=== PATIENT | male | born 1980 | race Caucasian/White ===

== ENCOUNTER 2016-09-08 08:36 | Inpatient (IN) | payer SELFPAY ==
[~2016-09-08] VITALS: Ht 165.1 cm; Wt 76.8 kg
--- NOTE | 2016-09-08 08:45 | NUR ---
DR BARDALES IN
--- NOTE | 2016-09-08 08:50 | NUR ---
NTG AND ASA 4 BABY ASA GIVEN AT THIS TIME AND 1 NTG PER VERBAL ORDERS FROM DR. BARDALES.
[2016-09-08] MEDS ORDERED: NORMAL SALINE 1,000 ML IV ONE ×2 (08:51→12:45)
[2016-09-08 08:59] LABS: HCT - HEMATOCRIT 41.9 % (41-53); MEAN CORPUSCULAR HGB 27.8 UUG (26-34); MEAN CORPUSCULAR HGB CONC(MCHC 33.4 GM/DL (31-37); MEAN CORPUSCULAR VOLUME 83.3 UM3 (80-100); RED BLOOD COUNT 5.03 M/MM3 (4.50-5.90); WBC - WHITE BLOOD COUNT 20.8 T/MM3 (4.5-11.0)
[2016-09-08] MEDS ORDERED: NITROGLYCERIN 0.4 MG SUBLINGUAL TABLET SL PRN (09:00)
[2016-09-08] MEDS ORDERED: G.I. COCKTAIL 30ml PO ONE (09:00)
[2016-09-08] MEDS ORDERED: FAMOTIDINE 20 MG in NORMAL SALINE 50 ML IV ONE (09:00)
[2016-09-08] MEDS ORDERED: ASPIRIN 81 MG CHEWABLE TABLET PO ONE (09:00)
--- NOTE | 2016-09-08 09:00 | NUR ---
NTG RESULTS/NO FURTHER ORDERED PT DENIES ANY RELIEF WITH NTG ADMINISTTRATION BUT DOES REDUCE BLOOD PRESSURE TO 124/78. SPOKE WITH DR. BARDALES ABOUT ADDITIONAL NTG AND HE STATES TO HOLD ANY ADDITIONAL ORDERS FOR NOW, IV FLUIDS, PEPCID, AND GI COCKTAIL WILL BE ORDERED.
--- NOTE | 2016-09-08 09:04 | NUR ---
PO MEDS GI COCKTAIL CHARTED W/ PT TOLERANCE.
--- NOTE | 2016-09-08 09:04 | ERPDOC ---
Departure Disposition Decision Date: Sep 08, 2016 Disposition Decision Time: 13:39 Disposition: 02 TO [facility] Impression Impression Impression: Primary Impression: Sepsis Additional Impression: Gastroparesis Severity: Severe Condition: Stable Seen By: Physician only Problems/Meds/Labs Reviewed?: Yes Medications reviewed and manag: Yes Follow up care ordered?: Yes Mental Status: Alert HPI - Chest Pain General Chief Complaint: Chest Pain Stated Complaint: CP Time Seen by Provider: 08:51 HPI - Chest Pain Initial Comments 35-year-old gentleman with no previous medical history. He does not see doctors. Awakened this morning at 6 AM with crushing chest pain. Has had this type of thing twice before, both resolved spontaneously. 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 No vomiting, has been nauseous this morning since he woke up. Girlfriend says he was diaphoretic on arising. He denies any drug usage, the girlfriend also denies that he uses anything. He does not drink alcohol. Very rarely smokes a cigarette. Pain is worse with deep breathing. Aspirin Treatment Today: provided at home Allergies: Coded Allergies: No Known Allergies (Unverified , 09/08/16) Past History Patient Medical History Problem List Updates: Negative Patient Surgical History Negative Past Medical History Pt denies signifigant PMH Surgical History Denies Surgeries Family History Family History: Negative Social History Smoking Status: Current some day smoker Substance Use Type: does not use Alcohol Intake: none Record Review Pertinent history updated: Yes Review of Systems Cardiovascular Cardiac: see HPI Rhythm/Rate: see HPI Pulmonary Respiratory: see HPI GI Upper Abdomen: see HPI General: see HPI All other Systems All Other Systems: Reviewed and Negative Physical Exam General General Nourishment: well nourished, well developed, appears stated age Distress Description Chest pain, pain with breathing, overall discomfort Vitals and Pain First Documented Vital Signs Date Time Temp Pulse Resp B/P Pulse Ox O2 Delivery O2 Flow Rate FiO2 09/08/16 08:36 95.8 42 18 172/102 100 Room Air 09/08/16 10:15 4.00 Weight: Kilograms: 78.600 Height (feet): 5 Height (inches): 4.00 Triage Pain Scale: Normal Exams: Head: Normocephalic w/o trauma Neck: Full range of motion, without adenopathy, JVD, bruits or thyromegaly CV: Regular rate and rhythm, without murmur or gallop, Pulses 2+ all extremities, capillary refill, <2 seconds all ext., no pedal edema noted Abdomen: Bowel sounds positive, soft, non-tender, non-distended, no hepatosplenomegaly, masses or bruits noted Neurologic: Patient is alert, and oriented, cranial nerves, motor/sensory/ cerebellar, exams w/o gross deficits, to observation Psychiatric: Patient exhibits, appropriate attention, emotion and affect Respiratory (brief) Comments Patient has mild crackles bilateral Differential Diagnoses Considering: Acute AR, Anxiety/Panic, CHF, Pancreatitis, Pericarditis, Pleurisy , Pneumothorax, Pneumonia, Pulmonary Edema, Pulmonary Embolus, Rib Fracture Progress Results/Orders Orders Procedure Category Date Status Time Cbc W/Auto LAB 09/08/16 Complete Diff-Reflex Manual 08:51 Cmp - Comprehensive LAB 09/08/16 Complete Metabolic 08:51 Probnp LAB 09/08/16 Complete 08:51 Troponin I W LAB 09/08/16 Complete Hemolysis Index 08:51 INR LAB 09/08/16 Complete 08:51 Ua, Dip Wreflex LAB 09/08/16 Complete Microsc & Collar Closer Lockstitch 08:51 D-Dimer LAB 09/08/16 Complete 08:51 Tsh - Thyroid Stim LAB 09/08/16 Complete Hormone 08:51 EKG EKG 09/08/16 Logged 08:51 Chest, Pa & Lateral RAD 09/08/16 Resulted 08:51 Iv Lock (Ed Only) EDM 09/08/16 Transmitted 08:51 Bgm (Ed) EDM 09/08/16 Transmitted 08:51 Bilateral Blood EDM 09/08/16 Transmitted Pressure 08:51 Normal Saline (Normal PHA 09/08/16 Complete Saline Iv) 08:51 Aspirin (Asa) PHA 09/08/16 Complete 09:00 Nitroglycerin PHA 09/08/16 In Process (Nitrostat) 09:00 Famotidine (Pepcid 20 PHA 09/08/16 Complete Mg Inj.) 09:00 G.I. Cocktail PHA 09/08/16 Complete (/Maalox/Lidocaine 09:[address] 09/08/16 Resulted Manage Oxygen WESELY 09/08/16 In Process Administration 09:21 Oxygen, Continuous RT 09/08/16 Logged 09:21 Blood Culture FRANCISCO 09/08/16 In Process 09:23 Ct Abd/Pelvis CT 09/08/16 Taken W/Contrast Only 09:18 Iohexol (Omnipaque) PHA 09/08/16 Complete 09:32 Normal Saline (Ns) PHA 09/08/16 Complete 09:32 Saline Flush (Iv PHA 09/08/16 Complete Flush) 09:32 Lactate - Lactic Acid LAB 09/08/16 Complete Lactate - Lactic Acid LAB 09/08/16 Logged 14:10 Insert Nasogastric WESLEY 09/08/16 In Process Tube 09:52 Morphine Sulfate PHA 09/08/16 Complete (Morphine) 10:00 Ondansetron Inj PHA 09/08/16 Complete (Zofran) 10:00 KUB RAD 09/08/16 Resulted 10:50 Drug Screen LAB 09/08/16 Logged Urine-Test At [facility] [place] 12:44 Lactate - Lactic Acid LAB 09/08/16 Complete 12:44 Lactate - Lactic Acid LAB 09/08/16 Logged 17:14 Respiratory Panel, Pcr LAB 09/08/16 Logged 12:44 Normal Saline (Normal PHA 09/08/16 In Process Saline Iv) 12:45 Procalcitonin LAB 09/08/16 Complete 12:44 Levofloxacin 750 Mg PHA 09/08/16 In Process Ivpb (Levaquin 750 M 12:45 Vancomycin (Vancocin) PHA 09/08/16 In Process 12:45 Pharmacy Consult CONS 09/08/16 Transmitted 12:44 Cefepime (Maxipime) PHA 09/08/16 Complete 12:45 Cefepime (Maxipime) PHA 09/08/16 In Process 12:45 Levofloxacin 750 Mg PHA 09/08/16 In Process Ivpb (Levaquin 750 M 12:45 Pharmacy Consult CONS 09/08/16 Transmitted 12:44 Place In Facility: ED ADM 09/08/16 Transmitted 13:34 Lab Results Laboratory Tests Test 09/08/16 08:49 09/08/16 09:02 09/08/16 09:38 09/08/16 10:09 White Blood Count 20.8T/MM3 Red Blood Count 5.03M/MM3 Hemoglobin 14.0GM/DL Hematocrit 41.9% Mean Corpuscular Volume 83.3UM3 Mean Corpuscular Hemoglobin 27.8UUG Mean Corpuscular Hemoglobin Concent 33.4GM/DL RDW Standard Deviation 38.8FL Platelet Count 411T/MM3 Mean Platelet Volume 10.0UM3 Immature Granulocyte % (Auto) % Neutrophils (%) (Auto) % Lymphocytes (%) (Auto) % Monocytes (%) (Auto) % Eosinophils (%) (Auto) % Basophils (%) (Auto) % Absolute Immature Granulocyte (auto T/MM3 Absolute Neutrophils (auto) T/MM3 Absolute Lymphocytes (auto) T/MM3 Absolute Monocytes (auto) T/MM3 Absolute Eosinophils (auto) T/MM3 Absolute Basophils (auto) T/MM3 Neutrophils % (Manual) 73.0% Band Neutrophils % 2.0% Lymphocytes % (Manual) 20.0% Reactive Lymphocytes % 1.0% Monocytes % (Manual) 4.0% Absolute Neutrophils (Manual) 15.2T/MM3 Band Neutrophils # 0.4T/MM3 Lymphocytes # (Manual) 4.2T/MM3 Reactive Lymphocytes # 0.2T/MM3 Monocytes # (Manual) 0.8T/MM3 Red Cell Morphology Comment Normal Prothromb Time International Ratio 0.91 D-Dimer < 150NG/ML Turbidity < 20 Sodium Level 144MEQ/L Potassium Level 3.7MEQ/L Chloride Level 104MEQ/L Carbon Dioxide Level 25MEQ/L Anion Gap 15MEQ/L Blood Urea Nitrogen 15.0MG/DL Creatinine 0.9MG/DL Glomerular Filtration Rate Calc 97 BUN/Creatinine Ratio 17RATIO Glucose Level 161MG/DL Calculated Osmolality 281MOSM/KG Calcium Level 9.7MG/DL Total Bilirubin 0.50MG/DL Icterus Index < 2 Aspartate Amino Transf (AST/SGOT) 25U/L Alanine Aminotransferase (ALT/SGPT) 46U/L Alkaline Phosphatase 98U/L Troponin I < 0.012ng/ml LK-Spv-M-Type Natriuretic Peptide 29PG/ML Total Protein 8.0G/DL Albumin 4.6G/DL Globulin 3.4G/DL Albumin/Globulin Ratio 1.4RATIO Thyroid Stimulating Hormone (TSH) 0.37MIU/L Chemistry Specimen Hemolysis < 15 Glucometer 150mg/dL Urine Collection Type Voided-not cc-midstr Urine Color Yellow Urine Turbidity Clear Urine pH 6.5 Urine Specific Ulmer 1.025 Urine Protein Negative Urine Glucose (UA) 1+ Urine Ketones Negative Urine Blood Negative Urine Nitrite Negative Urine Bilirubin Negative Urine Urobilinogen 0.2EU/DL Urine Leukocyte Esterase Negative Urinalysis Comment Microscopic not ind. Plasma Lactate 3.9MMOL/L Test 09/08/16 13:00 Plasma Lactate 1.5MMOL/L Procalcitonin < 0.05NG/ML Medications Current ED Medications Sodium Chloride (Normal Saline IV) 1,000 ml @ 1,000 mls/hr Q1H ONCE IV Last administered on 09/08/16 09:04; Start 09/08/16 at 08:51; Stop 09/08/16 at 09:50 ; Status DC Aspirin (ASA) 324 mg O ONCE PO Last administered on 09/08/16 08:50; Start at 09:00; Stop 09/08/16 at 09:01; Status DC Nitroglycerin 0.4 mg 0.4 mg Q5MIN PRN SL CHEST PAIN Last administered on 08:50; Start 09/08/16 at 09:00 Famotidine/Sodium Chloride (PEPCID 20 mg INJ./NS) 52 ml @ 100 mls/hr O ONCE IV Last administered on 09/08/16 09:00; Start 09/08/16 at 09:00; Stop at 09:31; Status DC Pharmacy Profile Note (/Maalox/ Lidocaine Soln) 30 ml O ONCE PO Last administered on 09/08/16 09:04; Start 09/08/16 at 09:00; Stop 09/08/16 at 09:01 ; Status DC Iohexol 1 bottle 1 bottle STK-MED ONCE .ROUTE ; Start 09/08/16 at 09:32; Stop at 09:33; Status DC Sodium Chloride (NS) 100 ml @ As Directed STK-MED ONCE .ROUTE ; Start 09/08/16 at 09:32; Stop 09/08/16 at 09:33; Status DC Sodium Chloride (Iv Flush) 10 ml STK-MED ONCE .ROUTE ; Start 09/08/16 at 09:32; Stop 09/08/16 at 09:33; Status DC Morphine Sulfate (Morphine) 4 mg O ONCE IV Last administered on 09/08/16 10: 09; Start 09/08/16 at 10:00; Stop 3/17/17 at 10:13; Status DC Ondansetron HCl 4 mg 4 mg O ONCE IV Last administered on 09/08/16 12:15; Start 09/08/16 at 10:00; Stop 09/08/16 at 10:13; Status DC Sodium Chloride 1,000 ml @ 125 mls/hr Q8H ONCE IV Last administered on 13:09; Start 09/08/16 at 12:45; Stop 09/08/16 at 20:44 Levofloxacin 750 mg/Dextrose/Water 150 ml @ 100 mls/hr O ONCE IV ; Start 09/08 at 12:45; Stop 09/08/16 at 14:14 Vancomycin HCl 1.75 g/Sodium Chloride 500 ml @ 250 mls/hr O ONCE IV ; Start at 12:45; Stop 09/08/16 at 14:44 Cefepime HCl 1 g/ Sodium Chloride 100 ml @ 200 mls/hr O ONCE IV ; Start at 12:45; Stop 09/08/16 at 13:14; Status DC Cefepime HCl 1 g/ Sodium Chloride 100 ml @ 200 mls/hr Q6H IV ; Start 09/08/16 at 12:45 Levofloxacin/ Dextrose/Water (LEVAQUIN 750 mg IVPB/D5W) 150 ml @ 100 mls/hr Q24H IV Last administered on 09/08/16 13:10; Start 09/08/16 at 12:45 Progress Progress Blood work is appropriate, x-ray is negative. Patient has most likely a viral gastroenteritis. Treat dehydration with 1 L of normal saline. Surgery consult, recommended patient be admitted through the hospitalist. Dr. House agreed to admit the patient with sepsis. We will start antibiotics for unknown sepsis including cefepime Levaquin and vancomycin. Repeat a lactate to see if it is rising or falling to aid in placement of patient on medical floor or in ICU. Continue IV fluids at 125 ML per hour. Urine drug screen also ordered and pending. VIDA BARDALES MD Sep 08, 2016 09:04
[2016-09-08 09:06] LABS: ALBUMIN 4.6 G/DL (3.5-5.0); ALBUMIN/GLOBULIN RATIO 1.4 RATIO (1.1-2.2); ALKALINE PHOSPHATASE 98 U/L (38-126); ALT (SGPT) 46 U/L (21-72); ANION GAP 15 MEQ/L (5-15); AST (SGOT) 25 U/L (17-59); BUN/CREATININE RATIO 17 RATIO (6-26); CALCIUM 9.7 MG/DL (8.4-10.2); CHLORIDE 104 MEQ/L (98-107); CO2 - CARBON DIOXIDE 25 MEQ/L (22-30); CREATININE 0.9 MG/DL (0.8-1.5); GLOMERULAR FILTRATION RATE 97; GLUCOSE 161 MG/DL (75-110); POTASSIUM 3.7 MEQ/L (3.6-5); SODIUM 144 MEQ/L (134-144)
--- NOTE | 2016-09-08 09:11 | NUR ---
Adriane romeo in EDM - 09/08/16 at [address] [facility] [address] SCAN PT GONE TO BOTH IMAGING VIA CART.
[2016-09-08 09:12] LABS: INR 0.91 (0.76-1.04); PROTHROMBIN TIME 9.9 SEC (9.31-12.49)
--- NOTE | 2016-09-08 09:12 | NUR ---
BP R ARM 120/60
--- NOTE | 2016-09-08 09:15 | NUR ---
XRAY PT GONE XRAY VIA CART.
[2016-09-08 09:19] LABS: PROBNP 29 PG/ML (0-175)
[2016-09-08 09:21] LABS: BAND NEUTROPHILS # 0.4 T/MM3; LYMPHOCYTES # (MANUAL) 4.2 T/MM3 (1-4.8); MONOCYTES # (MANUAL) 0.8 T/MM3 (0-0.8); NEUTROPHILS #(MANUAL)-ABSOLUTE 15.2 T/MM3 (1.8-7.7); REACTIVE LYMPHOCYTES # 0.2 T/MM3 (0-0); TOTAL CELLS COUNTED 100 %
--- NOTE | 2016-09-08 09:28 | NUR ---
XRAY PT BACK FROM XRAY VIA CART.
[2016-09-08] MEDS ORDERED: IOHEXOL 350 MG/ML 75ml INJECTION ONE (09:32)
[2016-09-08] MEDS ORDERED: NORMAL SALINE 100 ML ONE (09:32)
[2016-09-08] MEDS ORDERED: SALINE FLUSH 10ml SYRINGE ONE (09:32)
--- NOTE | 2016-09-08 09:35 | NUR ---
CT SCAN PT GONE TO CT SCAN VIA CART.
[2016-09-08 09:36] LABS: THYROID STIM HORMONE-TSH 0.37 MIU/L (0.47-4.68)
--- NOTE | 2016-09-08 09:37 | DI ---
EXAM: CHEST, PA LATERAL COMPARISON: None available. HISTORY: ITS.REASON: pain . FINDINGS:The lungs are somewhat hyperinflated with increased AP diameter. The cardiomediastinal silhouette is within limits of normal. The pulmonary vascularity appears unremarkable. The lungs are clear. There is no evidence for pleural effusion. There is no evidence for a pneumothorax. No osseous abnormalities are identified. IMPRESSION: Unremarkable exam. No acute process identified. LOCATION OF DICTATION: [facility] – [place] .
[2016-09-08 09:47] LABS: BLOOD, URINE NEGATIVE (NEGATIVE); COLOR,URINE YELLOW (YELLOW); LEUKOCYTE ESTERASE ,URINE NEGATIVE (NEGATIVE); NITRITE,URINE NEGATIVE (NEGATIVE); UROBILINOGEN,URINE 0.2 EU/DL (NORMAL)
--- NOTE | 2016-09-08 09:55 | NUR ---
CT SCAN PT BACK FROM CT SCAN VIA CART.
[2016-09-08] MEDS ORDERED: ONDANSETRON 4mg/2ml INJECTION IV ONE (10:00)
[2016-09-08] MEDS ORDERED: MORPHINE SULFATE 4 MG SYRINGE IV ONE (10:00)
--- NOTE | 2016-09-08 10:00 | NUR ---
LAB IN ROOM FOR BLOOD CULTURES.
--- NOTE | 2016-09-08 10:52 | NUR ---
XRAY PT GONE TO XRAY FOR CONFIRMATION OF NG TUBE R KEKE.
--- NOTE | 2016-09-08 10:54 | DI ---
EXAM: CTA PULMONARY EMBOLI using a PE pulmonary angiogram protocol with coronal MIP images. LOCATION OF DICTATION: [facility] [place]. HISTORY: ITS.REASON: chest pain, dyspnea COMPARISON: None available. TECHNIQUE: Without IV contrast, coffee roaster image of the chest was obtained. Then, using a high rate of flow, 74 cc Omnipaque 350 IV contrast was administered, and using a thin collimation helical acquisition, axial images were obtained from the highest diaphragm to the level of the aortic arch. The study was reviewed in mediastinal, bone and lung windows. Coronal and sagittal reformations were also obtained. Coronal 3D MIP images were also obtained. The current CT scan was performed using radiation dose-reduction techniques. FINDINGS: VASCULATURE: There is adequate opacification of the pulmonary arterial system. No filling defect is identified to suggest a pulmonary embolism. The thoracic aorta appears unremarkable. SOFT TISSUE: No axillary, mediastinal, or hilar lymphadenopathy is identified. No significant pericardial effusion is identified. CHEST WALL: Unremarkable. BONES: Unremarkable LUNGS: : Coalescent groundglass opacity is seen at the posterior aspect of the right upper lobe which may be related to an inflammatory or infectious etiology. Chest IMPRESSION: 1. No evidence for pulmonary embolism. 2. Coalescent opacity at the posterior aspect of the right upper lobe which could represent a subtle infiltrate. Otherwise unremarkable. EXAM: CT abdomen pelvis with IV contrast COMPARISON: . HISTORY: ITS.REASON: chest pain, dyspnea abdominal pain. LOCATION OF DICTATION: [facility] [place] TECHNIQUE: Axial images were obtained from the domes of the diaphragms to the ischial tuberosities with administration of 74 mL Omnipaque 300 contrast. The study was reconstructed into thinner axial sections and in coronal and sagittal reformations. Study is reviewed in lung, soft tissue, bone and liver windows. The current CT scan was performed using radiation dose-reduction techniques. ABDOMEN AND PELVIS FINDINGS: LIVER: There is mild periportal edema. GALLBLADDER: Unremarkable. SPLEEN: Unremarkable. PANCREAS: Unremarkable. ADRENAL GLANDS: Unremarkable. AORTA/IVC/VASCULATURE: Unremarkable. LYMPH NODES: No lymphadenopathy is identified. Small lymph nodes are noted, but are not pathologically enlarged. GENITOURINARY: Unremarkable. No renal calculi or obstructive uropathy. The bladder and ureters appear unremarkable. BOWEL: Unremarkable. The stomach, duodenum, small bowel, and colon appear unremarkable. The stomach is markedly distended with food material. The terminal ileum and appendix appear unremarkable. There is a small to moderate amount of stool seen throughout the colon. The descending colon and rectosigmoid colon avilez are thickened but likely is due to nondistention. Some fluid-filled loops of nondilated small bowel are noted. ABDOMINAL/PELVIC WALL: Unremarkable. BONES: Pars defects at L5 are noted. Abdomen and pelvis IMPRESSION: 1. Mild periportal edema. 2. Stomach is markedly distended with food material. 3. Some fluid-filled loops of nondilated small bowel are noted which is a nonspecific finding. This can sometimes be seen with an enteritis. Clinical correlation is suggested. .
--- NOTE | 2016-09-08 11:20 | DI ---
EXAM: KUB 1107 hours COMPARISON: CT abdomen and pelvis 09/08/2016 at 0944 hours HISTORY: ITS.REASON: ngt . Abdominal pain. FINDINGS: NG tube is in place with the tip at the antrum of the stomach. Residual contrast is seen within the upper collecting system and bladder likely from recent CT scan. There is a moderate amount stool seen throughout the colon. Some air-filled loops of nondilated small bowel are noted. No osseous abnormality is seen. No abnormal calcifications are identified. IMPRESSION: 1. NG tube in place with the tip at the antrum of the stomach. 2. Small to moderate amount of stool seen throughout the colon. Some air-filled of nondilated small bowel are noted which could represent a mild ileus. LOCATION OF DICTATION: [facility] [place] .
[2016-09-08] MEDS ORDERED: VANCOMYCIN 1.75 G in NORMAL SALINE 500 ML IV ONE (12:45)
[2016-09-08] MEDS ORDERED: CEFEPIME 1 G in NORMAL SALINE 100 ML IV ONE (12:45)
[2016-09-08] MEDS ORDERED: LEVOFLOXACIN 750 mg IVPB 750 MG in D5W 150 ML IV SCH (12:45)
[2016-09-08] MEDS ORDERED: LEVOFLOXACIN 750 mg IVPB 750 MG in D5W 150 ML IV ONE (12:45)
--- NOTE | 2016-09-08 13:35 | NUR ---
ROOM ASSIGNED ROOM ASSIGNED RM 140 IN MEDICAL UNIT.
--- NOTE | 2016-09-08 13:44 | NUR ---
REPORT REPORT GIVEN TO SARA ADAM.
--- NOTE | 2016-09-08 14:05 | NUR ---
DEPART PT LEFT ER ADMIT TO MEDICAL RM 140 VIA CART W/ CONSTANT MONITORING THROUGHOUT W/ IV X2 AND DROWSY BUT AWAKENED AND PT CARE XFERED TO SARA RN W/O CHANGE.
--- NOTE | 2016-09-08 14:05 | NUR ---
Admit Patient admitted to Medical Unit room 140 from ED. Arrived on cart and was able to awaken enough to transfer from cart to bed. Patient answered admit questions appropriately and then went back to sleep. NG present to left nare and hooked up to low intermittent suction. Patient's arrived in room after admit questions done. Sitting at bedside quietly.
[2016-09-08 14:06] VITALS: Ht 165.1 cm; Wt 76.8 kg
[2016-09-08 14:13] VITALS: BP 157/96; PULSE 52; RESP 14; TEMP 95.6; O2SAT 97
--- NOTE | 2016-09-08 14:17 | NUR ---
VANCOMYCIN CONSULT: Dx: Sepsis Current Renal Fx: SCr = 0.9mg/dl. Will give loading dose of Vancomycin 1,750mg IV one time. Follow this with 1,250mg ivpb q8h. Will continue to monitor and adjust regimen to maintain therapeutic levels. Thank you.
--- NOTE | 2016-09-08 15:00 | NUR ---
Status Patient arrived back from CT. Verbal report given to Kristin ADAM who will be assuming care of patient. Kristin understands we need to obtain drug screen UA on patient and its ok to straight cath if need be. Lab is on their way down for UA.
--- NOTE | 2016-09-08 15:01 | DI ---
EXAM: CT HEAD W/O CONTRAST COMPARISON: None available. HISTORY: ITS.REASON: decreased mentation LOCATION OF DICTATION: [facility] [place]. TECHNIQUE: Axial images were obtained through the brain without IV contrast. Study is reviewed in brain, bone, subdural, and soft tissue windows. The current CT scan was performed using radiation dose-reduction techniques. FINDINGS: There is prominent CSF space at the posterior fossa posterior to the vermis measuring 2.1 cm x 1.4 cm and may represent an arachnoid cyst. This is of doubtful clinical significance. The marinelli-white junctions are distinct. No sulcal effacement is identified. There is no evidence for intracranial hemorrhage. The cerebrospinal fluid spaces appear unremarkable. No abnormal extra-axial fluid collections are identified to suggest subdural or epidural hematoma. The midline structures appear unremarkable as well. There is no evidence for midline shift or mass effect. The suprasellar cistern and quadrigeminal plate cisterns are intact. No osseous abnormalities are identified. There is no evidence for displaced skull fracture. No space occupying mass is identified. No definite evidence for acute or subacute ischemia is identified. The mastoid air cells are clear. The paranasal sinuses able to be visualized are clear. IMPRESSION: 1. Incidental note is made of a possible arachnoid cyst in the posterior fossa measuring 2.1 cm x 1.4 cm. This is of doubtful clinical significance. 2. Otherwise unremarkable exam. .
--- NOTE | 2016-09-08 15:11 | NUR ---
Pt. signs consent for Drug screen. Care Taker, Torrie Talley, present. Pt. awakens enough to use urinal. Placed in containers by Lab. Dr. Almonte in.
[2016-09-08] MEDS: CEFEPIME 1 G in NORMAL SALINE 100 ML IV SCH ×2 (15:22→19:06)
--- NOTE | 2016-09-08 15:37 | HPPDOC ---
DEBBIE PÉREZ V [employer] 09/08/16 1508: HPI - Adult Date DATE: 09/08/16 TIME: 14:49 General Chief Complaint: chest pain, abdominal pain History of Present Illness Patient is a 35-year-old male who presented to the emergency room today for acute evaluation of chest and upper abdominal discomfort. History is obtained from patient's at the bedside. She reports that he awoke at approximately 6 a.m. and complained of significant chest/epigastric pain. At that time he appeared to be diaphoretic. She reports he has had a similar pain that was brief in nature approximately one month ago as well as the month prior, however , never became this severe. Due to the severity of this pain she brought patient to the emergency room today for further evaluation and treatment. Initial laboratory studies were obtained and patient was found to have an elevated white count at 20.8, hemoglobin 14, hematocrit 41.9, platelet count 411 , 73% neutrophils and 2% bandemia. Sodium is 144, potassium 3.7, BUN 15, creatinine 0.9, glucose 161. Troponin was undetectable, less than 0.012. Initial lactate was found to be elevated at 3.9, however, it was repeated 3 hours later and decreased to 1.5 pro calcitonin undetectable, less than 0.05. TSH was found to be low at 0.37. INR 0.91, d-dimer less than 150. Urinalysis did show 1+ glucose, otherwise unremarkable. CT scan of the chest, abdomen and pelvis was obtained. Given severity of patient's pain. Patient was found to have some groundglass opacities in the right upper lobe could represent infectious process. No pulmonary emboli was identified. Stomach was found to be markedly distended, and there were's presence of fluid-filled nondilated small bowel loops. An NG tube was placed to decompress the stomach. Patient was given 4mg Zofran and 4mg of morphine for nausea and pain control. He was then started on antibiotics including Levaquin 750, vancomycin and cefepime. It is reported that patient has been somewhat somnolent, even even prior to administration of morphine. Given the severity of illness and evidence of sepsis with unknown origin the hospitalist services were contacted and septa patient for inpatient admission for further evaluation and treatment Patient is seen on initial arrival to the medical unit. He is sleeping and will not arouse to painful stimuli. All history and information regarding present illness is obtained from at the bedside. 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 He has not been on any medications and had no previous surgeries. Past Medical History Past Medical History Negative Surgical History Patient's Surgical History: Negative Allergies: Coded Allergies: No Known Allergies (Unverified , 09/08/16) Family History Family History: Mother-diabetes, hypertension Father-alive and well Social History Smoking Status: Never smoker Substance Use Type: does not use Alcohol Intake: none Current Occupational Status: employed Advance Directives: No DPOA for Healthcare Only Social History Comments No primary care provider Review of Systems Unable to Obtain ROS Due to: clinical condition Comments Unable to obtain ROS due to decreased level of consciousness. Physical Exam General General Nourishment: well nourished, well developed Vital Signs Vital Signs Date Time Temp Pulse Resp B/P Pulse Ox O2 Delivery O2 Flow Rate FiO2 09/08/16 14:13 95.6 52 14 157/96 97 Room Air 09/08/16 10:50 4.00 Height (Feet): 5 Height (Inches): 5.00 Comments Decreased breath sounds due to poor effort Cardiovascular (brief) Cardiac Brief: FOUND: regular rate, NOT FOUND: regular rhythm (bradycardia) Abdomen (brief) Abdominal Brief: FOUND: BS normo active x4, soft Comments NG tube in place to low intermittent suction Integumentary (brief) Integumentary Brief: FOUND: dry, pink, warm Neurologic (brief) Neurological Brief: FOUND: cranial 2-12 intact Neurologic RN Documented GCS Eye Opening: (4)Spontaneous Verbal: (5)Oriented Motor: (6)Obeys Commands Total: Psychiatric (brief) FOUND: alert, attentive, normal affect, oriented Laboratory Laboratory Tests Test 09/08/16 08:49 09/08/16 09:02 09/08/16 09:38 09/08/16 10:09 White Blood Count 20.8T/MM3 Red Blood Count 5.03M/MM3 Hemoglobin 14.0GM/DL Hematocrit 41.9% Mean Corpuscular Volume 83.3UM3 Mean Corpuscular Hemoglobin 27.8UUG Mean Corpuscular Hemoglobin Concent 33.4GM/DL RDW Standard Deviation 38.8FL Platelet Count 411T/MM3 Mean Platelet Volume 10.0UM3 Immature Granulocyte % (Auto) % Neutrophils (%) (Auto) % Lymphocytes (%) (Auto) % Monocytes (%) (Auto) % Eosinophils (%) (Auto) % Basophils (%) (Auto) % Absolute Immature Granulocyte (auto T/MM3 Absolute Neutrophils (auto) T/MM3 Absolute Lymphocytes (auto) T/MM3 Absolute Monocytes (auto) T/MM3 Absolute Eosinophils (auto) T/MM3 Absolute Basophils (auto) T/MM3 Neutrophils % (Manual) 73.0% Band Neutrophils % 2.0% Lymphocytes % (Manual) 20.0% Reactive Lymphocytes % 1.0% Monocytes % (Manual) 4.0% Absolute Neutrophils (Manual) 15.2T/MM3 Band Neutrophils # 0.4T/MM3 Lymphocytes # (Manual) 4.2T/MM3 Reactive Lymphocytes # 0.2T/MM3 Monocytes # (Manual) 0.8T/MM3 Red Cell Morphology Comment Normal Prothromb Time International Ratio 0.91 D-Dimer < 150NG/ML Turbidity < 20 Sodium Level 144MEQ/L Potassium Level 3.7MEQ/L Chloride Level 104MEQ/L Carbon Dioxide Level 25MEQ/L Anion Gap 15MEQ/L Blood Urea Nitrogen 15.0MG/DL Creatinine 0.9MG/DL Glomerular Filtration Rate Calc 97 BUN/Creatinine Ratio 17RATIO Glucose Level 161MG/DL Calculated Osmolality 281MOSM/KG Calcium Level 9.7MG/DL Total Bilirubin 0.50MG/DL Icterus Index < 2 Aspartate Amino Transf (AST/SGOT) 25U/L Alanine Aminotransferase (ALT/SGPT) 46U/L Alkaline Phosphatase 98U/L Troponin I < 0.012ng/ml TN-Trn-R-Type Natriuretic Peptide 29PG/ML Total Protein 8.0G/DL Albumin 4.6G/DL Globulin 3.4G/DL Albumin/Globulin Ratio 1.4RATIO Thyroid Stimulating Hormone (TSH) 0.37MIU/L Chemistry Specimen Hemolysis < 15 Glucometer 150mg/dL Urine Collection Type Voided-not cc-midstr Urine Color Yellow Urine Turbidity Clear Urine pH 6.5 Urine Specific [place] 1.025 Urine Protein Negative Urine Glucose (UA) 1+ Urine Ketones Negative Urine Blood Negative Urine Nitrite Negative Urine Bilirubin Negative Urine Urobilinogen 0.2EU/DL Urine Leukocyte Esterase Negative Urinalysis Comment Microscopic not ind. Plasma Lactate 3.9MMOL/L Test 09/08/16 13:00 Plasma Lactate 1.5MMOL/L Procalcitonin < 0.05NG/ML Sepsis Diagnostic Criteria Sepsis SIRS Criteria: Pulse >= 90 beats/min, WBC >=12,000 or <=4,000, BS >120 in non- diabetic Assessment & Plan Problems: (1) Sepsis Status: Acute Assessment & Plan: Manifestations of sepsis include the following 1. Leukocytosis- WBC- 20.8 2. Elevated lactate- 3.9 3. Temp 95.6 There is questionable area of opacity in the right upper lobe lung that could represent an early infiltrate. (2) Bradycardia Status: Acute (3) Gastroparesis Status: Acute (4) Hyperthyroidism Status: Acute Plan/Intensity of Service Patient is admitted as a inpatient under care of Dr. Monroe for sepsis of unknown origin, bradycardia, leukocytosis with elevated lactate and hyperthyroidism. She was initiated on triple coverage antibiotic therapy including Levaquin, vancomycin and cefepime IV. We will continue with this treatment. We will repeat a venous lactate at 1700. Blood cultures are pending Will obtain a CT scan of the head. Given decreased level of consciousness to rule out intracranial abnormalities. Will obtain a Hgb A1 C,Free T4, Urine drug screen, respiratory panel for further medical workup. Monitor patient cardiac telemetry given bradycardia Continue with NG tube to low intermittent suction. Will keep patient nothing by mouth at this time SCDs to bilateral lower extremity for DVT prophylaxis Recheck CBC and BMP tomorrow morning to follow blood counts, renal function and electrolytes. Will discuss further plan and orders of care with Dr. Monroe DVT Prophylaxis: SCD'S Code Status Full Code Hospital Course Summary Disclaimer The hospital course summary below is not to be considered part of the above Progress Note. Hospital Course Summary 09/08 Patient is admitted as a inpatient under care of Dr. Monroe for sepsis of unknown origin, bradycardia, leukocytosis with elevated lactate and hyperthyroidism. She was initiated on triple coverage antibiotic therapy including Levaquin, vancomycin and cefepime IV. We will continue with this treatment. We will repeat a venous lactate at 1700. Blood cultures are pending Will obtain a CT scan of the head. Given decreased level of consciousness to rule out intracranial abnormalities. Will obtain a Hgb A1 C,Free T4, Urine drug screen, respiratory panel for further medical workup. Monitor patient cardiac telemetry given bradycardia Continue with NG tube to low intermittent suction. Will keep patient nothing by mouth at this time SCDs to bilateral lower extremity for DVT prophylaxis Recheck CBC and BMP tomorrow morning to follow blood counts, renal function and electrolytes. Will discuss further plan and orders of care with DIANA Samuel MD 09/08/16 6189: Past Medical History Allergies: Coded Allergies: No Known Allergies (Unverified , 09/08/16) Sepsis Diagnostic Criteria Sepsis SIRS Criteria: Acute mental status chg Severe Sepsis Lactate >=2.0 mg/dL Assessment & Plan Problems: (1) Sepsis Status: Acute Assessment & Plan: Severe sepsis with lactic acid 3.9 (2) Encephalopathy Status: Acute (3) Chest pain Status: Acute (4) Gastroparesis Status: Acute (5) Bradycardia Status: Acute (6) Hyperthyroidism Status: Acute (7) Hyperglycemia Status: Acute (8) Anemia Assessment I have independently evaluated and examined this patient. I reviewed the chart, the patient's history, and the [employer]'s documented findings as above. We discussed and formulated the assessment and plan as above with additions as below: Mr. Howe presented to the emergency room complaining of crushing chest pain and diaphoresis; there is no known past history or reported drug use. Minimal history can be obtained from the patient at this time and emergency room evaluation is as previously described. Initial troponin was unremarkable and CTA was without vascular abnormalities although minor infiltrate may be present. Patient was described as being alert and oriented in the emergency room but subsequently has become very lethargic and is able to provide minimal history. He responds to sternal rub and is able to tell me that there is pain subxiphoid but nothing else. He was able to cooperate with simple testing as long as he was repetitively stimulated but otherwise drifted off to sleep. Patient denied any difficulty prior to this morning including recent cold or drug use. EXAM General-resting comfortably, awakens to sternal rub or shaking shoulder gently but not to voice HEENT-while sleeping gaze is disconjugate but when awakened gaze is conjugate, EOMI, PERRL, conjunctiva clear, sclera anicteric, facial structure symmetric, oropharynx clear, neck is supple and moves without difficulty, no adenopathy present Lungs-decreased inspiratory effort but breath sounds clear anteriorly and posteriorly Cardiac-regular rhythm, S1-S2 Abd-minor discomfort on deep palpation subxiphoid but very localized, no guarding. NG tube present, abdomen is not distended and bowel sounds are diminished. No tenderness throughout the generalized abdomen. Ext-without edema Skin-without rash or evidence of wounds Neuro-cranial nerves II through XII grossly intact, motor tone and power within normal limits, no drift of the upper extremities, butting saw operator 4+/5, proximal/distal power lower extremities 4/5 bilaterally. Sensation intact to light touch upper and lower extremities symmetrically. Psych-Sedated/dull. Multiple radiographic studies reviewed including CTA with minimal infiltrate in the right upper lobe, chest x-ray normal by my review as was CT of the head by my review although radiology notes an incidental possible arachnoid cyst posteriorly of no significance. KUB reveals some nondilated small bowel loops which are air-filled and raises question of possible ileus. Initial lactic acid was 3.9, improving after initial fluids and gastric decompression with NG. Mild anemia present on admission in addition to leukocytosis and low-grade thrombocytosis. His reticulocyte. Mild hyperglycemia of unknown duration. Bradycardia present in the emergency room and twelve-lead EKG revealed heart rate of [address]-T wave abnormalities although there was minor slurring of the ST segments in multiple leads. Twelve-lead EKG is being repeated at this time and troponin updated based on presenting symptoms and bradycardia. I remain concerned there may be an underlying cardiac event triggering presentation. Urine drug screen is pending. Continue triple antibiotics as precaution although extensive imaging is without evidence of underlying infectious process. Respiratory viral panel pending. Avoid sedating medications due to encephalopathy which may be result of narcotics administered in the emergency room. Plan/Intensity of Service Discussed with Dr. Washburn, laboratory data reviewed, multiple x-rays and EKG reviewed by myself. Hospital stay anticipated be greater than 2 nights. DEBBIE PÉREZ APRN Sep 08, 2016 15:08 DIANA MONROE MD Sep 08, 2016 16:09
[2016-09-08 16:00] VITALS: PULSE 56; RESP 16
[2016-09-08 16:10] LABS: AMPHETAMINE SCREEN,URINE POSITIVE; BARBITURATE SCREEN,URINE NEGATIVE; BENZODIAZEPINES SCREEN,URINE NEGATIVE; CANNABINOID SCREEN,URINE NEGATIVE; COCAINE SCREEN,URINE NEGATIVE; METHADONE SCREEN, URINE NEGATIVE; METHAMPHETAMINE SCREEN, URINE NEGATIVE; OPIATE SCREEN,URINE NEGATIVE; PHENCYCLIDINE SCREEN,URINE NEGATIVE; TRICYCLIC ANTIDEPRESSANT,URINE NEGATIVE
[2016-09-08 16:43] VITALS: BP 154/99; PULSE 55; RESP 16; TEMP 97; O2SAT 100
--- NOTE | 2016-09-08 19:02 | NUR ---
Summary: Sleeps. NS infuses at 125 cc/hr. IV Antibiotics given. NG to intermittant suction; small amount yellowish/greenish/ drainage in tubing. going to collection canister. Awakened once on his own stating his throat hurt. Mouth swabs in cold water brought. Voided once. Denies pain. Dr. Monroe in twice. Pt.'s and step daughter present.
[2016-09-08 19:39] VITALS: BP 158/95; PULSE 56; RESP 15; TEMP 96.4; O2SAT 98
[2016-09-08 20:00] VITALS: PULSE 54; PULSE 57
[2016-09-09] VITALS: BP 150/98; PULSE 66; RESP 14; TEMP 96.5; O2SAT 98
[2016-09-09] MEDS: VANCOMYCIN 1,250 MG in NORMAL SALINE 250 ML IV SCH ×2 (01:05→09:29)
[2016-09-09] MEDS: CEFEPIME 1 G in NORMAL SALINE 100 ML IV SCH ×2 (03:13→08:36)
[2016-09-09 04:00] VITALS: BP 145/103; PULSE 81; RESP 16; TEMP 97.3; O2SAT 97
--- NOTE | 2016-09-09 04:40 | NUR ---
SUMMARY PT WAS DIFFICULT TO AROUSE EARLIER IN THE NIGHT, PT IS NOW SEMI ALERT AND ORIENTED TO PERSON AND PLACE. IV SITE IN THE RT AC IS NOW LOCKED WELL THE ONE IN THE LT FOREARM, BOTH FLUSH WELL. NG TUBE TO INTERMITTENT SUCTION, WITH YELLOWISH-GREEN CONTENTS. PT HAS NOT BEEN OUT OF BED DURING THE NIGHT. IS AT BEDSIDE. PT IS ABLE TO MOVE HIMSELF AROUND IN BED.
[2016-09-09 05:31] LABS: HGB - HEMOGLOBIN 13.6 GM/DL (13.5-17.5); MEAN CORPUSCULAR HGB 27.6 UUG (26-34); MEAN CORPUSCULAR HGB CONC(MCHC 33.2 GM/DL (31-37); MEAN CORPUSCULAR VOLUME 83.2 UM3 (80-100); MEAN PLATELET VOLUME 10.4 UM3 (9.4-12.4); RED BLOOD COUNT 4.93 M/MM3 (4.50-5.90); WBC - WHITE BLOOD COUNT 16.1 T/MM3 (4.5-11.0)
[2016-09-09 05:44] LABS: ANION GAP 8 MEQ/L (5-15); BUN/CREATININE RATIO 9 RATIO (6-26); CALCIUM 9.2 MG/DL (8.4-10.2); CHLORIDE 104 MEQ/L (98-107); CO2 - CARBON DIOXIDE 27 MEQ/L (22-30); CREATININE 0.7 MG/DL (0.8-1.5); GLOMERULAR FILTRATION RATE 130; GLUCOSE 122 MG/DL (75-110); POTASSIUM 3.9 MEQ/L (3.6-5); SODIUM 139 MEQ/L (134-144)
[2016-09-09 06:54] LABS: BAND NEUTROPHILS # 0.3 T/MM3; LYMPHOCYTES # (MANUAL) 1.3 T/MM3 (1-4.8); MONOCYTES # (MANUAL) 0.6 T/MM3 (0-0.8); REACTIVE LYMPHOCYTES # 0.8 T/MM3 (0-0); TOTAL CELLS COUNTED 100 %; TOXIC GRANULATION 1+
[2016-09-09 07:58] VITALS: BP 172/108; PULSE 71; RESP 14; TEMP 98; O2SAT 97
[2016-09-09] MEDS ORDERED: MORPHINE SULFATE 2 MG SYRINGE IV ONE (08:30)
[2016-09-09 09:29] VITALS: PULSE 73
[2016-09-09 09:30] VITALS: BP 155/100; PULSE 73
[2016-09-09 09:37] VITALS: RESP 18
[2016-09-09] MEDS ORDERED: ACETAMINOPHEN 500 MG TABLET PO ONE (11:30)
--- NOTE | 2016-09-09 16:03 | NUR ---
AMA THE PATIENT NOTIFIED ME AROUND 1130 THAT HE WANTED TO LEAVE THE HOSPITAL. HIS REASONING WAS THAT HE WANTED THE NG TUBE OUT, HE WAS HUNGRY AND HE WAS UNCOMFORTABLE. HE REPORTED AN 8/10 HEADACHE AND BP WAS 150/100. GAVE ORDERS FOR 1000MG TYLENOL BUT THE PATIENT REFUSED AND SAID HE JUST WANTED TO LEAVE. CAME IN AND TALKED WITH THE PATIENT AND HIS AND OFFERED TO REMOVE THE NG TUBE, GIVE TYLENOL FOR HEADACHE AND TRY SOME ORAL FLUIDS TO SEE HOW HE TOLERATED IT. EXPLAINED THE RISKS OF LEAVING GREGORY INCLUDING: NAUSEA,VOMITING,ASPIRATION,DEHYDRATION AND UNCONTROLLED BLOOD PRESSURE. THE PATIENT WAS ENCOURAGE TO FOLLOWUP WITH A PRIMARY CARE PROVIDER FOR HIS HYPERTENSION. AFTER EXPLANATION OF RISKS AND ENCOURAGEMENT TO STAY, THE PATIENT MADE THE INFORMED DECISION TO LEAVE ANYWAY. PT WAS A&OX3 AND WAS PRESENT. NG TUBE,IV LOCK,TELE AND SCDS WERE REMOVED AND PATIENT WALKED OUT OF FACILITY.
--- NOTE | 2016-09-09 21:10 | DSPDOC ---
General Date Date DATE: 09/09/16 TIME: 20:49 Attending Physician Allison Monroe MD Admitting Physician Allison Monroe MD Consulting Physician Admitting Diagnosis sepsis Discharge Diagnosis 1. Sepsis of unknown primary 2. Bradycardia, resolved 3. Epigastric pain 4. Gastroparesis, acute 5. Hypertension 6. Positive urine drug screen Procedures NG tube placement for gastric decompression Laboratory Laboratory Tests Test 09/08/16 09:02 09/08/16 09:38 09/08/16 10:09 09/08/16 13:00 Glucometer 150mg/dL (75-110) Urine Collection Type Voided-not cc-midstr Urine Color Yellow (YELLOW) Urine Turbidity Clear (CLEAR) Urine pH 6.5 (5.0-8.0) Urine Specific [place] 1.025 (1.015-1.025) Urine Protein Negative (NEGATIVE) Urine Glucose (UA) 1+ (NEGATIVE) Urine Ketones Negative (NEGATIVE) Urine Blood Negative (NEGATIVE) Urine Nitrite Negative (NEGATIVE) Urine Bilirubin Negative (NEGATIVE) Urine Urobilinogen 0.2EU/DL (NORMAL) Urine Leukocyte Esterase Negative (NEGATIVE) Urinalysis Comment Microscopic not ind. Plasma Lactate 3.9MMOL/L (0.6-2.2) 1.5MMOL/L (0.6-2.2) Procalcitonin < 0.05NG/ML Test 09/08/16 15:01 09/08/16 15:11 09/08/16 15:43 09/09/16 04:53 Plasma Lactate 1.5MMOL/L (0.6-2.2) Urine Opiates Screen NegativeNG/ML Urine Oxycodone Screen NegativeNG/ML Urine Methadone Screen NegativeNG/ML Urine Propoxyphene Screen NegativeNG/ML Urine Barbiturates Screen NegativeNG/ML Urine Tricyclic Antidepressants NegativeNG/ML Urine Phencyclidine Screen NegativeNG/ML Urine Amphetamines Screen PositiveNG/ML Urine Methamphetamines Screen NegativeNG/ML Urine Benzodiazepines Screen NegativeNG/ML Urine Cocaine Screen NegativeNG/ML Urine Cannabinoids Screen NegativeNG/ML Urine Drug Screen Confirmation Sent out Hemoglobin A1c 5.7% (6.1-7.9) Troponin I < 0.012ng/ml (0-0.12) < 0.012ng/ml (0-0.12) Chemistry Specimen Hemolysis < 15 (0-25) < 15 (0-25) Adenovirus (PCR) Negative (NEGATIVE) Bordetella parapertussis DNA (PCR) Negative (NEGATIVE) Chlamydia pneumoniae DNA (PCR) Negative (NEGATIVE) Coronavirus Type OC43 (PCR) Negative (NEGATIVE) Coronavirus Type HKU1 (PCR) Negative (NEGATIVE) Coronavirus Type 229E (PCR) Negative (NEGATIVE) Coronavirus Type NL63 (PCR) Negative (NEGATIVE) Human Metapneumovirus (PCR) Negative (NEGATIVE) Influenza Virus Type A (PCR) Negative (NEGATIVE) Influenza Virus Type B (PCR) Negative (NEGATIVE) Mycoplasma pneumoniae (PCR) Negative (NEGATIVE) Parainfluenza Type 1 (PCR) Negative (NEGATIVE) Parainfluenza Type 2 (PCR) Negative (NEGATIVE) Parainfluenza Type 3 (PCR) Negative (NEGATIVE) Parainfluenza Type 4 (PCR) Negative (NEGATIVE) Respiratory Syncytial Virus (PCR) Negative (NEGATIVE) Enterovirus/Rhinovirus (PCR) Negative (NEGATIVE) White Blood Count 16.1T/MM3 (4.5-11.0) Red Blood Count 4.93M/MM3 (4.50-5.90) Hemoglobin 13.6GM/DL (13.5-17.5) Hematocrit 41.0% (41-53) Mean Corpuscular Volume 83.2UM3 (80-100) Mean Corpuscular Hemoglobin 27.6UUG (26-34) Mean Corpuscular Hemoglobin Concent 33.2GM/DL (31-37) RDW Standard Deviation 39.2FL (36.9-50.2) Platelet Count 376T/MM3 (130-400) Mean Platelet Volume 10.4UM3 (9.4-12.4) Immature Granulocyte % (Auto) % (0.0-0.5) Neutrophils (%) (Auto) % (33-66) Lymphocytes (%) (Auto) % (23-45) Monocytes (%) (Auto) % (0-9.0) Eosinophils (%) (Auto) % (0-4) Basophils (%) (Auto) % (0-2) Absolute Immature Granulocyte (auto T/MM3 (0.00-0.03) Absolute Neutrophils (auto) T/MM3 (1.8-7.7) Absolute Lymphocytes (auto) T/MM3 (1-4.8) Absolute Monocytes (auto) T/MM3 (0-0.8) Absolute Eosinophils (auto) T/MM3 (0-0.5) Absolute Basophils (auto) T/MM3 (0-0.2) Neutrophils % (Manual) 81.0% (33-66) Band Neutrophils % 2.0% (0-6) Lymphocytes % (Manual) 8.0% (23-45) Reactive Lymphocytes % 5.0% (0-0) Monocytes % (Manual) 4.0% (0-9.0) Absolute Neutrophils (Manual) 13.0T/MM3 (1.8-7.7) Band Neutrophils # 0.3T/MM3 Lymphocytes # (Manual) 1.3T/MM3 (1-4.8) Reactive Lymphocytes # 0.8T/MM3 (0-0) Monocytes # (Manual) 0.6T/MM3 (0-0.8) Toxic Granulation 1+ Dohle Bodies 1+ Red Cell Morphology Comment Normal Turbidity < 20 (0-20) Sodium Level 139MEQ/L (134-144) Potassium Level 3.9MEQ/L (3.6-5) Chloride Level 104MEQ/L (98-107) Carbon Dioxide Level 27MEQ/L (22-30) Anion Gap 8MEQ/L (5-15) Blood Urea Nitrogen 6.0MG/DL (9-20) Creatinine 0.7MG/DL (0.8-1.5) Glomerular Filtration Rate Calc 130 BUN/Creatinine Ratio 9RATIO (6-26) Glucose Level 122MG/DL (75-110) Calculated Osmolality 267MOSM/KG (261-280) Calcium Level 9.2MG/DL (8.4-10.2) Icterus Index < 2 (0-7) Microbiology Microbiology Date/Time Source Procedure Growth Status 09/08/16 10:09 Peripheral/Iv Start Blood Culture - Preliminary NO GROWTH AFTER 24 HOURS Resulted 09/08/16 10:02 Peripheral/Iv Start Blood Culture - Preliminary NO GROWTH AFTER 24 HOURS Resulted Radiology Chest x-ray on admission was unremarkable other than mild hyperinflation. CTA of the chest on 09/08 revealed no evidence of pulmonary emboli or other thoracic vascular pathology. There was questionable subtle infiltrate in the right upper lobe. KUB on 09/08 demonstrated changes suggestive of mild ileus with some air-filled loops of nondilated small bowel. CT head without contrast on 09/08 demonstrated no acute pathology. There was a prominent CSF space in the posterior fossa thought to be a probable arachnoid cyst. Mastoid air cells and paranasal sinuses were clear. History of Present Illness Patient is a 35-year-old male who presented to the emergency room today for acute evaluation of chest and upper abdominal discomfort. History is obtained from patient's at the bedside. She reports that he awoke at approximately 6 a.m. and complained of significant chest/epigastric pain. At that time he appeared to be diaphoretic. She reports he has had a similar pain that was brief in nature approximately one month ago as well as the month prior, however , never became this severe. Due to the severity of this pain she brought patient to the emergency room today for further evaluation and treatment. Initial laboratory studies were obtained and patient was found to have an elevated white count at 20.8, hemoglobin 14, hematocrit 41.9, platelet count 411 , 73% neutrophils and 2% bandemia. Sodium is 144, potassium 3.7, BUN 15, creatinine 0.9, glucose 161. Troponin was undetectable, less than 0.012. Initial lactate was found to be elevated at 3.9, however, it was repeated 3 hours later and decreased to 1.5 pro calcitonin undetectable, less than 0.05. TSH was found to be low at 0.37. INR 0.91, d-dimer less than 150. Urinalysis did show 1+ glucose, otherwise unremarkable. CT scan of the chest, abdomen and pelvis was obtained. Given severity of patient's pain. Patient was found to have some groundglass opacities in the right upper lobe could represent infectious process. No pulmonary emboli was identified. Stomach was found to be markedly distended, and there were's presence of fluid-filled nondilated small bowel loops. An NG tube was placed to decompress the stomach. Patient was given 4mg Zofran and 4mg of morphine for nausea and pain control. He was then started on antibiotics including Levaquin 750, vancomycin and cefepime. It is reported that patient has been somewhat somnolent, even even prior to administration of morphine. Given the severity of illness and evidence of sepsis with unknown origin the hospitalist services were contacted and septa patient for inpatient admission for further evaluation and treatment Patient is seen on initial arrival to the medical unit. He is sleeping and will not arouse to painful stimuli. All history and information regarding present illness is obtained from at the bedside. 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 He has not been on any medications and had no previous surgeries. Hospital Course 09/08 Patient admitted as a inpatient for sepsis of unknown origin, bradycardia, leukocytosis with elevated lactate and mildly depressed TSH. Triple coverage antibiotic therapy initiated including Levaquin, vancomycin and cefepime IV in the emergency room, continued on admission pending blood cultures. Initial presentation in the emergency room suggestive of cardiac ischemia with diaphoresis and chest/epigastric pain. EKG without acute pathology and initial troponin unremarkable. Repeat troponin unchanged as well as follow-up EKG. Monitor patient cardiac telemetry given bradycardia NG placed for gastric distention-continue to low intermittent suction. Epigastric pain may have been due to gastric distention with bradycardia and diaphoresis result of vagal stimulation. SCDs to bilateral lower extremity for DVT prophylaxis. Patient minimally arousable/excessively drowsy after arrival on the floor although he will awaken briefly when stimulated. Recheck CBC and BMP tomorrow morning to follow blood counts, renal function and electrolytes. Urine drug screen positive for amphetamines- confirms patient does not use any medications or take stimulants for ADHD. 09/09 Patient more alert today, complains of headache. Blood pressures elevated- patient denies past history of hypertension but acknowledges does not have blood pressure monitored on a regular basis. Headache initially controlled with low-dose morphine. Later recurred at which time Tylenol was to be given per NG. NG clamped this morning without recurrent nausea. As patient became more awake he advise nursing that he wanted to go home and was leaving AGAINST MEDICAL ADVICE. I spoke with him and recommended that NG be discontinued and liquid diet initiated prior to consideration of discharge. On examination today the patient was alert in no acute distress. Respirations were nonlabored with good airflow and breath sounds were clear. Abdomen was soft and nontender. Patient was moving all extremities spontaneously. Etiology of presenting symptoms remained unclear and relapse cannot be excluded in the immediate future. Patient unwilling to consider delay in discharge. NG tube and IV removed prior to discharge. His indicated the patient has not had anything to eat and 48 hours and that was part of his cristobal to leave. He's been afebrile since arrival and white count was slightly better today than yesterday. Blood cultures are negative after 24 hours but the cause of gastroparesis/epigastric pain/excessive somnolence (which patient attributes to medications given in the emergency room) is far from clear. Similarly cause of bradycardia is obscure. Patient was advised he needs follow-up for hypertension and general medical reassessment. Problems: (1) Sepsis Status: Acute Assessment & Plan: Severe sepsis with lactic acid 3.9 (2) Encephalopathy Status: Resolved (3) Chest pain Status: Resolved (4) Gastroparesis Status: Acute (5) Bradycardia Status: Resolved (6) Hyperthyroidism Status: Acute Assessment & Plan: Diagnosis uncertain-TSH 0.37, free T4 pending at discharge (7) Hyperglycemia Status: Acute (8) Anemia Code Status Full Code Face to Face Encounter I met with patient on the day of dismissal and discussed follow up appointments , medications, and safety plan. Discharge Disposition Home Documentation Requirements Documenting Diagnosis Altered Mental Status Alt. Mental Status/Confusion Check if condition above is: Acute ALLISON MONROE MD Sep 09, 2016 20:56
--- NOTE | 2016-09-11 16:19 | DI ---
EXAM: CTA PULMONARY EMBOLI using a PE pulmonary angiogram protocol with coronal MIP images. [place] [facility] [place]ORY: ITS.REASON: chest pain, dyspnea COMPARISON: None available. TECHNIQUE: Without IV contrast, spa attendant image of the chest was obtained. Then, using a high rate of flow, 74 cc Omnipaque 350 IV contrast was administered, and using a thin collimation helical acquisition, axial images were obtained from the highest diaphragm to the level of the aortic arch. The study was reviewed in mediastinal, bone and lung windows. Coronal and sagittal reformations were also obtained. Coronal 3D MIP images were also obtained. The current CT scan was performed using radiation dose-reduction techniques. FINDINGS: VASCULATURE: There is adequate opacification of the pulmonary arterial system. No filling defect is identified to suggest a pulmonary embolism. The thoracic aorta appears unremarkable. SOFT TISSUE: No axillary, mediastinal, or hilar lymphadenopathy is identified. No significant pericardial effusion is identified. CHEST WALL: Unremarkable. BONES: Unremarkable LUNGS: : Coalescent groundglass opacity is seen at the posterior aspect of the right upper lobe which may be related to an inflammatory or infectious etiology. Chest IMPRESSION: 1. No evidence for pulmonary embolism. 2. Coalescent opacity at the posterior aspect of the right upper lobe which could represent a subtle infiltrate. Otherwise unremarkable. EXAM: CT abdomen pelvis with IV contrast COMPARISON: . HISTORY: ITS.REASON: chest pain, dyspnea abdominal pain. [place] [facility] [place]: Axial images were obtained from the domes of the diaphragms to the ischial tuberosities with administration of 74 mL Omnipaque 300 contrast. The study was reconstructed into thinner axial sections and in coronal and sagittal reformations. Study is reviewed in lung, soft tissue, bone and liver windows. The current CT scan was performed using radiation dose-reduction techniques. ABDOMEN AND PELVIS FINDINGS: LIVER: There is mild periportal edema. GALLBLADDER: Unremarkable. SPLEEN: Unremarkable. PANCREAS: Unremarkable. ADRENAL GLANDS: Unremarkable. AORTA/IVC/VASCULATURE: Unremarkable. LYMPH NODES: No lymphadenopathy is identified. Small lymph nodes are noted, but are not pathologically enlarged. GENITOURINARY: Unremarkable. No renal calculi or obstructive uropathy. The bladder and ureters appear unremarkable. BOWEL: Unremarkable. The stomach, duodenum, small bowel, and colon appear unremarkable. The stomach is markedly distended with food material. The terminal ileum and appendix appear unremarkable. There is a small to moderate amount of stool seen throughout the colon. The descending colon and rectosigmoid colon avilez are thickened but likely is due to nondistention. Some fluid-filled loops of nondilated small bowel are noted. ABDOMINAL/PELVIC WALL: Unremarkable. BONES: Pars defects at L5 are noted. Abdomen and pelvis IMPRESSION: 1. Mild periportal edema. 2. Stomach is markedly distended with food material. 3. Some fluid-filled loops of nondilated small bowel are noted which is a nonspecific finding. This can sometimes be seen with an enteritis. Clinical correlation is suggested. .
--- NOTE | 2016-09-12 15:41 | NUR ---
CM CM LVM
--- NOTE | 2016-09-13 15:31 | NUR ---
CM CM SPOKE WITH PT SPOUSE RODRIGUEZ AND PT WENT TO [place] [facility] FROM [facility] [place] AND HAD GALLBLADDER REMOVED AND WILL FOLLOW WITH SURGEON. CM EXPLAINED THAT PT CAN CALL CM IF NEEDS ARISE.
== END 2016-09-09 12:00 | disposition left against medical advice (07) | DRG 871 ==
LOC: ED 08:36 → EDHOLD 13:36 → MED 14:00
PROVIDERS: ADMIT Internal Medicine; ATTEND Internal Medicine
PROC: 0D9670Z Drainage of Stomach with Drainage Device, Via Natural or Artificial Opening (ICD-10-PCS; principal; 2016-09-08)
DX: A41.9 Sepsis, unspecified organism (principal); G93.40 Encephalopathy, unspecified; R65.20 Severe sepsis without septic shock; K31.84 Gastroparesis; E86.0 Dehydration; E05.90 Thyrotoxicosis, unspecified without thyrotoxic crisis or storm; R73.9 Hyperglycemia, unspecified; D64.9 Anemia, unspecified; I10 Essential (primary) hypertension; R82.5 Elevated urine levels of drugs, medicaments and biological substances
CPT/HCPCS: 36415; 80048; 80053; 80306; 81003; 82948; 83036; 83605; 83880; 84145; 84439; 84443; 84484; 85025; 85379; 85610; 87040; 87486; 87581; 87633; 87798; 93005